=== PATIENT | male | born 1985 | race American Indian/Alaskan Native ===

== ENCOUNTER 2020-09-19 09:20 | Emergency (ER) | payer SELFPAY ==
--- NOTE | 2020-09-19 12:37 | XRay Report ---
CHEST 2 VIEWS INDICATION: shortness of breath. COMPARISON: None. FINDINGS: Support devices: None. Heart: Within normal limits. Lungs/Pleura: No acute air space or interstitial disease. No significant pleural effusion. IMPRESSION: No acute findings. Signer Name: Gil Frances MD Signed: 09/19/2020 12:32 PM Workstation Name: [id number]
--- NOTE | 2020-09-19 12:49 | Emergency Department Report ---
ED General Adult HPI - General Chief complaint: Anxiety Stated complaint: PANIC ATTACK Time Seen by Provider: 09/19/20 12:09 Source: patient Mode of arrival: Ambulatory Limitations: No Limitations - History of Present Illness Initial comments: 34-year-old -[place] male patient presents with complaints of intermittent shortness of breath x3 months. Patient states the episodes have become more frequent and he is concerned that he has anxiety. He denies any current shortness of breath, chest pain, leg pain/swelling, cough/hemoptysis, or past medical history. He reports the episodes can occur at any time during the day and at night waking him from his sleep. The episodes of shortness of breath usually last a few minutes per patient. He does report history of smoking and states he stopped 1 month ago. He states he is not currently following with a primary care provider Severity scale (0 -10): 0 - Related Data Previous Rx's Medication Instructions Recorded Last Taken Type hydrOXYzine PAMOATE [Vistaril] 25 mg PO Q6HR PRN #20 capsule 09/19/20 Unknown Rx Allergies Allergy/AdvReac Type Severity Reaction Status Date / Time No Known Allergies Allergy Unverified 09/19/20 09:29 ED Review of Systems ROS: Stated complaint: PANIC ATTACK Other details as noted in HPI Constitutional: denies: chills, fever Respiratory: shortness of breath. denies: cough Cardiovascular: edema. denies: chest pain, palpitations, syncope Gastrointestinal: denies: abdominal pain, nausea, vomiting Genitourinary: denies: urgency Musculoskeletal: denies: back pain Skin: denies: rash, change in color Neurological: denies: numbness, paresthesias Hematological/Lymphatic: denies: easy bleeding, easy bruising ED Past Medical Hx - Past Medical History Previous Medical History?: Yes Additional medical history: BRONCHITIS/ ANXIETY - Surgical History Past Surgical History?: No - Medications Home Medications: Home Medications Medication Instructions Recorded Confirmed Last Taken Type hydrOXYzine PAMOATE [Vistaril] 25 mg PO Q6HR PRN #20 capsule 09/19/20 Unknown Rx ED Physical Exam - General Limitations: No Limitations General appearance: alert, in no apparent distress - Head Head exam: Present: atraumatic, normocephalic - Eye Eye exam: Present: normal appearance. Absent: scleral icterus - ENT ENT exam: Present: mucous membranes moist - Neck Neck exam: Present: normal inspection, full ROM. Absent: thyromegaly - Respiratory Respiratory exam: Present: normal lung sounds bilaterally. Absent: respiratory distress - Cardiovascular Cardiovascular Exam: Present: regular rate, normal rhythm. Absent: systolic murmur, diastolic murmur, rubs, gallop - GI/Abdominal GI/Abdominal exam: Present: soft. Absent: distended, tenderness, guarding, rebound, rigid - Extremities Exam Extremities exam: Present: normal inspection, full ROM. Absent: calf tenderness (No swelling or pain noted bilaterally to legs) - Back Exam Back exam: Present: full ROM - Neurological Exam Neurological exam: Present: alert, oriented X3, normal gait - Psychiatric Psychiatric exam: Present: normal affect, normal mood - Skin Skin exam: Present: warm, dry, intact, normal color. Absent: rash, cyanosis, diaphoretic ED Course Vital Signs 09/19/20 09/19/20 09:31 14:28 Temperature 98.3 F Pulse Rate 75 Respiratory 18 18 Rate Blood Pressure 126/77 [Right] O2 Sat by Pulse 97 Oximetry ED Medical Decision Making - Lab Data Result diagrams: 09/19/20 12:45 09/19/20 12:45 Lab Results 09/19/20 09/19/20 Range/Units 12:45 12:45 WBC 6.6 (4.5-11.0) K/mm3 RBC 4.82 (3.65-5.03) M/mm3 Hgb 14.9 (11.8-15.2) gm/dl Hct 44.4 (35.5-45.6) % MCV 92 (84-94) fl MCH 31 (28-32) pg MCHC 33 (32-34) % RDW 12.5 L (13.2-15.2) % Plt Count 180 (140-440) K/mm3 Lymph % (Auto) 23.2 (13.4-35.0) % Sawyer % (Auto) 6.8 (0.0-7.3) % Eos % (Auto) 0.1 (0.0-4.3) % Baso % (Auto) 0.2 (0.0-1.8) % Lymph # (Auto) 1.5 (1.2-5.4) K/mm3 Sawyer # (Auto) 0.4 (0.0-0.8) K/mm3 Eos # (Auto) 0.0 (0.0-0.4) K/mm3 Baso # (Auto) 0.0 (0.0-0.1) K/mm3 Seg Neutrophils % 69.7 (40.0-70.0) % Seg Neutrophils # 4.6 (1.8-7.7) K/mm3 Sodium 141 (137-145) mmol/L Potassium 3.7 (3.6-5.0) mmol/L Chloride 98.6 (98-107) mmol/L Carbon Dioxide 25 (22-30) mmol/L Anion Gap 21 mmol/L BUN 14 (9-20) mg/dL Creatinine 1.0 (0.8-1.3) mg/dL Estimated GFR > 60 ml/min BUN/Creatinine Ratio 14 % Glucose 78 (75-100) mg/dL Calcium 9.8 (8.4-10.2) mg/dL Total Bilirubin 1.80 H (0.1-1.2) mg/dL AST 18 (5-40) units/L ALT 7 (7-56) units/L Alkaline Phosphatase 52 (35-129) units/L Total Protein 8.1 (6.3-8.2) g/dL Albumin 4.9 (3.9-5) g/dL Albumin/Globulin Ratio 1.5 % - Radiology Data Radiology results: report reviewed CHEST 2 VIEWS INDICATION: shortness of breath. COMPARISON: None. FINDINGS: Support devices: None. Heart: Within normal limits. Lungs/Pleura: No acute air space or interstitial disease. No significant pleural effusion. IMPRESSION: No acute findings. - Medical Decision Making 34-year-old -[place] male patient presents with complaints of intermittent shortness of breath x3 months. Patient states the episodes have become more frequent and he is concerned that he has anxiety. He denies any current shortness of breath, chest pain, leg pain/swelling, cough/hemoptysis, or past medical history. He reports the episodes can occur at any time during the day and at night waking him from his sleep. The episodes of shortness of breath usually last a few minutes per patient. He does report history of smoking and states he stopped 1 month ago. He states he is not currently following with a primary care provider Lungs are clear to auscultation bilaterally on exam with the regular heart rate and rhythm noted. PERC score = 0. Chest x-ray is normal. CBC is WNL. CMP shows somewhat elevated bilirubin at 1.8, but is otherwise normal. History appears to be consistent with anxiety. Recommend follow-up with primary care for further evaluation and treatment and also for follow-up of elevated bilirubin level. Referral was provided for patient. His vitals are normal, he is well-appearing, and he is stable for discharge home. He denies any current shortness of breath. Strict return precautions were discussed in great detail with patient who verbalizes understanding. Critical care attestation.: If time is entered above; I have spent that time in minutes in the direct care of this critically ill patient, excluding procedure time. ED Disposition Clinical Impression: Anxiety, Hyperbilirubinemia Disposition: TO HOME OR SELFCARE Is pt being admited?: No Condition: Stable Instructions: Generalized Anxiety Disorder (ED) Prescriptions: hydrOXYzine PAMOATE [Vistaril] 25 mg PO Q6HR PRN #20 capsule PRN Reason: Anxiety Referrals: CESAR ANTONIO MD [Staff Physician] - 3-5 Days
[2020-09-19 13:51] LABS: Basophils % (Auto) 0.2 % (0.0-1.8); Eosinophils % (Auto) 0.1 % (0.0-4.3); Hematocrit 44.4 % (35.5-45.6); Hemoglobin 14.9 gm/dl (11.8-15.2); Lymphocytes # (Auto) 1.5 K/mm3 (1.2-5.4); Lymphocytes % (Auto) 23.2 % (13.4-35.0); Mean Corpuscular HGB Conc 33 % (32-34); Mean Corpuscular Volume 92 fl (84-94); Monocytes # (Auto) 0.4 K/mm3 (0.0-0.8); Monocytes % (Auto) 6.8 % (0.0-7.3); Platelet Count 180 K/mm3 (140-440); Red Blood Count 4.82 M/mm3 (3.65-5.03); Red Cell Distribution Width 12.5 % (13.2-15.2)
[2020-09-19] MEDS ORDERED: LORazepam 1 MG TAB PO ONE (14:14)
[2020-09-19 14:16] LABS: Alanine Aminotransferase 7 units/L (7-56); Albumin 4.9 g/dL (3.9-5); BUN/Creatinine Ratio 14; Blood Urea Nitrogen 14 mg/dL (9-20); Calcium 9.8 mg/dL (8.4-10.2); Hemolysis Index 17
[2020-09-19 14:44] VITALS: BP 120/79
== END 2020-09-19 14:54 | disposition home or self-care (01) ==
LOC: ED 09:20
DX: F41.9 Anxiety disorder, unspecified (principal); E80.6 Other disorders of bilirubin metabolism; Z79.899 Other long term (current) drug therapy
CPT/HCPCS: 36415; 71046; 80053; 85025

== ENCOUNTER 2020-09-20 09:36 | Emergency (ER) | payer SELFPAY ==
[2020-09-20 09:48] VITALS: BP 121/73
[2020-09-20] MEDS ORDERED: ALBUTEROL 2.5 MG/3 ML NEBU IH ONE (14:03)
--- NOTE | 2020-09-20 14:22 | Emergency Department Report ---
ED General Adult HPI - General Chief complaint: Anxiety Stated complaint: SOB Time Seen by Provider: 09/20/20 14:00 Source: patient Mode of arrival: Ambulatory Limitations: No Limitations - History of Present Illness Initial comments: This very pleasant 34-year-old male presents the emergency department with a chief complaint of intermittent shortness of breath over the past month. Patient was diagnosed with COVID-19 on 08/02/2020 and is a heavy smoker of about 1 pack of cigarettes a day. Patient reports he also previously used cocaine but the last time he used it was about 4 months ago. He states he is concerned because he will have these intermittent episodes where he will have shortness of breath, sweating, anxiety and panic attacks but they will resolve after short period of time. He states multiple other family members have had bronchitis and asthma inhalers and thinks he may need an inhaler. Denies any chest pain, weakness, fever, chills, night sweats, dizziness, blurry vision, nausea, vomiting, diarrhea or any other associated symptoms. He denies any known past medical history other than he has had bronchitis in the past. Severity scale (0 -10): 0 - Related Data Previous Rx's Medication Instructions Recorded Last Taken Type hydrOXYzine PAMOATE [Vistaril] 25 mg PO Q6HR PRN #20 capsule 09/19/20 Unknown Rx Albuterol Sulfate [Proair 90 mcg IH Q4HR #1 aer.pw.bas 09/20/20 Unknown Rx Digihaler] Allergies Allergy/AdvReac Type Severity Reaction Status Date / Time No Known Allergies Allergy Verified 09/20/20 09:44 ED Review of Systems ROS: Stated complaint: SOB Other details as noted in HPI Comment: All other systems reviewed and negative Constitutional: denies: chills, fever Eyes: denies: eye pain, eye discharge, vision change ENT: denies: ear pain, throat pain Respiratory: shortness of breath. denies: cough, wheezing Cardiovascular: denies: chest pain, palpitations Endocrine: no symptoms reported Gastrointestinal: denies: abdominal pain, nausea, diarrhea Genitourinary: denies: urgency, dysuria Musculoskeletal: denies: back pain, joint swelling, arthralgia Skin: denies: rash, lesions Neurological: denies: headache, weakness, paresthesias Psychiatric: denies: anxiety, depression Hematological/Lymphatic: denies: easy bleeding, easy bruising ED Past Medical Hx - Past Medical History Additional medical history: BRONCHITIS/ ANXIETY - Social History Smoking Status: Current Every Day Smoker Substance Use Type: Marijuana - Medications Home Medications: Home Medications Medication Instructions Recorded Confirmed Last Taken Type hydrOXYzine PAMOATE [Vistaril] 25 mg PO Q6HR PRN #20 capsule 09/19/20 Unknown Rx Albuterol Sulfate [Proair 90 mcg IH Q4HR #1 aer.pw.bas 09/20/20 Unknown Rx Digihaler] ED Physical Exam - General Limitations: No Limitations General appearance: alert, in no apparent distress - Head Head exam: Present: atraumatic, normocephalic - Eye Eye exam: Present: normal appearance, PERRL, EOMI Pupils: Present: normal accommodation - ENT ENT exam: Present: normal exam, normal orophraynx, mucous membranes moist - Neck Neck exam: Present: normal inspection, full ROM. Absent: tenderness, meningismus - Respiratory Respiratory exam: Present: normal lung sounds bilaterally. Absent: respiratory distress, wheezes, rales, rhonchi, stridor, chest wall tenderness - Cardiovascular Cardiovascular Exam: Present: regular rate, normal rhythm, normal heart sounds. Absent: systolic murmur, diastolic murmur, rubs, gallop - GI/Abdominal GI/Abdominal exam: Present: soft, normal bowel sounds. Absent: distended, tenderness, guarding, rebound, rigid - Rectal Rectal exam: Present: deferred - Extremities Exam Extremities exam: Present: normal inspection, full ROM. Absent: tenderness, calf tenderness (Negative Homans' sign bilaterally, no posterior calf tenderness, no lower extreme edema.) - Back Exam Back exam: Present: normal inspection, full ROM. Absent: tenderness, CVA tenderness (R), CVA tenderness (L) - Neurological Exam Neurological exam: Present: alert, oriented X3, CN II-XII intact, normal gait - Psychiatric Psychiatric exam: Present: normal affect, normal mood, anxious - Skin Skin exam: Present: warm, dry, intact, normal color. Absent: rash ED Course Vital Signs 09/20/20 09:48 Temperature 98.4 F Pulse Rate 79 Respiratory 18 Rate Blood Pressure 121/73 [Right] O2 Sat by Pulse 100 Oximetry ED Medical Decision Making - Medical Decision Making Patient was given a breathing treatment and he felt much better. Vitals have remained normal. O2 saturation is out of percent on room air. Patient is PERC negative and a low risk by Wells criteria making my suspicion for PE unlikely. Suspect the patient symptoms are likely secondary to his Covid infection I will send him home with an inhaler for symptomatic treatment, recommended increase fluid hydration and will give him outpatient primary care doctor follow-up. He was instructed to return the emerge part immediately if he develops any change or worsening symptoms. He verbalized understanding the diagnosis, treatment plan and follow-up instructions and all his questions were answered. - Differential Diagnosis Pneumonia, PE, COVID-19 Critical care attestation.: If time is entered above; I have spent that time in minutes in the direct care of this critically ill patient, excluding procedure time. ED Disposition Clinical Impression: Post viral asthma Disposition: - TO HOME OR SELFCARE Is pt being admited?: No Condition: Stable Instructions: Asthma (ED) Prescriptions: Albuterol Sulfate [Proair Digihaler] 90 mcg IH Q4HR #1 aer.pw.bas Referrals: PRIMARY CARE, [Primary Care Provider] - 3-5 Days Time of Disposition: 15:16
== END 2020-09-20 15:30 | disposition home or self-care (01) ==
LOC: ED 09:36
DX: J45.909 Unspecified asthma, uncomplicated (principal); F17.200 Nicotine dependence, unspecified, uncomplicated; F12.10 Cannabis abuse, uncomplicated; Z79.899 Other long term (current) drug therapy
CPT/HCPCS: 94640; 99282